=== PATIENT | female | born 1970 | race Caucasian/White ===

== ENCOUNTER 2021-01-21 10:20 | Emergency (ER) | payer OTHER ==
[2021-01-21 12:10] LABS: HEMOGLOBIN 14.9 gm/dl (12.3-15.3); WHITE BLOOD COUNT 8.3 K/UL (4.5-11.0)
[2021-01-21 12:24] LABS: BUN/CREATININE RATIO 9 (0-10)
== END 2021-01-21 17:30 | disposition home or self-care (01) ==
LOC: ER1 10:20
PROVIDERS: Physician Assistant
DX: R74.01 Elevation of levels of liver transaminase levels (principal); R79.1 Abnormal coagulation profile; M79.604 Pain in right leg; M79.605 Pain in left leg; E11.9 Type 2 diabetes mellitus without complications; I10 Essential (primary) hypertension; Z90.710 Acquired absence of both cervix and uterus; Z88.5 Allergy status to narcotic agent; Z79.899 Other long term (current) drug therapy
CPT/HCPCS: 71045; 80053; 81001; 84703; 85025; 85379; 93970; 99284; J7030; Q9967